=== PATIENT | female | born 1965 | race Caucasian/White ===

== ENCOUNTER 2018-01-23 07:08 | Day surgery (SDC) | payer BC ==
[~2018-01-23] VITALS: Ht 157.5 cm; Wt 79.4 kg
[~2018-01-23 07:08] MED LIST: BIOTIN5 M1 PO; CYANOCOBALAM1000 MCG PO; ERGOCALCIF50000 UNIT PO; PRILOSEC20 MG PO
== END 2018-01-23 09:00 | disposition home or self-care (01) ==
LOC: PAIN 07:08 → SDC 07:30 → PAIN 07:30
DX: G97.1 Other reaction to spinal and lumbar puncture (principal); G37.9 Demyelinating disease of central nervous system, unspecified
CPT/HCPCS: J2250; J3010